=== PATIENT | male | born 1975 | race Hispanic/Latino ===

== ENCOUNTER 2018-02-21 12:42 | Emergency (ER) | payer BC ==
[2018-02-21 13:18] LABS: APPEARANCE,URINE Clear (CLEAR); BILIRUBIN,URINE Negative (NEGATIVE); COLOR,URINE Yellow (YELLOW); GLUCOSE, URINE (UA) Negative (NEGATIVE); KETONES,URINE Negative (NEGATIVE); LEUKOCYTE ESTERASE ,URINE Negative (NEGATIVE); NITRATE,URINE Negative (NEGATIVE); OCCULT BLOOD,URINE Negative (NEGATIVE); PH,URINE 5.5 (5.0-8.0); PROTEIN,URINE Negative (NEGATIVE); UROBILINOGEN,URINE 0.2 mg/dL (0.2-1.0)
[2018-02-21] MEDS ORDERED: SODIUM CHLORIDE 0.9% 1000ML 1,000 ML IV ONE (13:19)
[2018-02-21] MEDS ORDERED: ONDANSETRON HCL MDV 20ML 2 MG/ML VIAL ONE (13:19)
[2018-02-21] MEDS ORDERED: MORPHINE SULFATE 4 MG/1ML SYG ONE (13:19)
[2018-02-21] MEDS ORDERED: KETOROLAC TROMETHAMINE 30MG/ML ONE (13:19)
[2018-02-21 14:07] LABS: BASOPHILS % (AUTO) 0.5 % (0.0-5.0); HEMATOCRIT 41.6 % (42-54); LYMPHOCYTES % (AUTO) 9.9 % (21.0-51.0); MEAN CORPUSCULAR HEMOGLOBIN 31.2 pg (27.0-33.0); MEAN CORPUSCULAR HGB CONC 34.4 g/dL (32.0-36.0); MEAN CORPUSCULAR VOLUME 90.5 fL (79-99); MONOCYTES % (AUTO) 4.5 % (3.0-13.0); NEUTROPHILS % (AUTO) 85.1 % (40.0-77.0); PLATELET COUNT (AUTO) 382 K/uL (130-400); RED CELL DISTRIBUTION WIDTH 14.2 % (11.0-15.5); WHITE BLOOD COUNT (AUTO) 14.7 K/uL (4.8-10.8)
[2018-02-21 14:17] LABS: CREATININE 1.3 mg/dL (0.5-1.5); POTASSIUM 4.7 mmol/L (3.5-5.1)
[2018-02-21 14:21] LABS: ALBUMIN 3.9 g/dL (3.5-5.0); BILIRUBIN,TOTAL 0.6 mg/dL (0.2-1.0); TOTAL PROTEIN, SERUM 8.5 g/dL (6.0-8.3)
[2018-02-21] MEDS ORDERED: TAMSULOSIN HCL 0.4 MG CAP.ER.24H ONE (15:13)
== END 2018-02-21 15:36 | disposition home or self-care (01) ==
LOC: EDH 12:42
DX: N20.0 Calculus of kidney (principal); I10 Essential (primary) hypertension
CPT/HCPCS: 36415; 74176; 80053; 81003; 83690; 85025; 96361; 96374; 96375; 99285; J1885; J2270; J7030

== ENCOUNTER → 2018-05-01 | Outpatient (CLI) | payer BC | END | disposition home or self-care (01) | LOC: RAH 10:57 | PROVIDERS: ATTEND Urology | DX: K43.9 Ventral hernia without obstruction or gangrene (principal); R16.0 Hepatomegaly, not elsewhere classified; K76.0 Fatty (change of) liver, not elsewhere classified; N20.2 Calculus of kidney with calculus of ureter | CPT/HCPCS: 74176 ==

== ENCOUNTER 2025-01-04 10:59 | Emergency (ER) | payer OTHER ==
[~2025-01-04] VITALS: Ht 177.8 cm; Wt 140.6 kg
--- NOTE | 2025-01-04 11:08 | ERN ---
ED Note History of Present Illness Stated Complaint: ABDOMINAL PAIN Time Seen by MD: 11:02 Time Seen by Midlevel: 11:06 Dictation: PATIENT IS A 49-YEAR-OLD DIABETIC MALE COMING IN TODAY WITH COMPLAINTS OF DIFFUSE ABDOMINAL PAIN HOWEVER MORE FOCUSED TO THE MID GASTRIC AREA PROXIMAL HERNIA. HE HAS ALSO HAD DIARRHEA SINCE LAST FRIDAY. NO NAUSEA NO VOMITING NO FEVER NO CHILLS. HE IS ON MED JAR 0 PATIENT HAS BEEN INSTRUCTED TO LOSE WEIGHT SECONDARY TO HAVING HERNIA REPAIR. Allergies: Coded Allergies: No Known Drug Allergies (Unverified Allergy, Unknown, 01/04/25) Past Medical History RN Note Reviewed/Agreed w/PFSH: Yes Review of System Dictation CONSTITUTIONAL: NEGATIVE EXCEPT FOR HPI HEAD/FACE: NEGATIVE EXCEPT FOR HPI EENT: NEGATIVE EXCEPT FOR HPI RESPIRATORY: NEGATIVE EXCEPT FOR HPI GASTROINTESTINAL/ABDOMINAL: NEGATIVE EXCEPT FOR HPI MID GASTRIC PAIN WITH DIARRHEA FOR SEVERAL DAYS. GENITOURINARY: NEGATIVE EXCEPT FOR HPI MUSCULOSKELETAL: NEGATIVE EXCEPT FOR HPI INTEGUMENTARY: NEGATIVE EXCEPT FOR HPI NEUROLOGICAL/PSYCH: NEGATIVE EXCEPT FOR HPI HEMATOLOGIC/LYMPHATIC: NEGATIVE EXCEPT FOR HPI ALL SYSTEMS NEGATIVE, EXCEPT NOTED ABOVE. 13 POINT REVIEW OF SYSTEMS ASSESSED AND ALL NEGATIVE EXCEPT FOR ABOVE. Initial Vital Sign VS Vital Signs Date Time Temp Pulse Resp B/P (MAP) Pulse Ox O2 Delivery O2 Flow Rate FiO2 01/04/25 11:07 97.0 78 20 166/91 99 Room Air 0 01/04/25 13:01 21 Physical Exam Dictation VITAL SIGNS REVIEWED GENERAL APPEARANCE: ALERT, ORIENTED X 3, MODERATE ACUTE DISTRESS, WELL DEVELOPED, NOURISHED. OBESE HEAD AND FACE: NON-TRAUMATIC. EYES: PERRL, PINK CONJUNCTIVAS, EYELID NO TRAUMA, ANTERIOR CHAMBER WITH ARCUS SENILIS. EARS: PINNAS INTACT AND NO SIGNS OF TRAUMA OR ERYTHEMA EAR CANALS CLEAR AND NO DISCHARGE TM NO ERYTHEMA NOSE: NO DISCHARGE, NO BLEEDING. OROPHARYNX: MOUTH NORMAL, TONGUE PINK, PHARYNX CLEAR,NO ERYTHEMA, TONSILS NO EXUDATES, NO ABSCESSES NOTED, MUCOUS MEMBRANE MOIST NECK: SUPPLE, NON-TENDER, NO THYROMEGALY, NO MASSES, NO JVD, NO BRUITS BREAST:DEFERRED CHEST:NO TENDERNESS, NO CREPITUS, NO PARADOXICAL MOVEMENT, NO RETRACTIONS LUNGS:CLEAR, WELL-VENTILATED, SYMMETRIC, NO RALES, NO WHEEZING, NO RHONCHI, NO STRIDOR, GOOD BREATH SOUNDS BILATERALLY HEART: REGULAR RATE, REGULAR RHYTHM, NO MURMUR, NO GALLOPS VASCULAR: NO PERIPHERAL EDEMA, ABDOMEN: SOFT, POSITIVE BOWEL SOUNDS, NONDISTENDED, NO GUARDING, DIFFUSE MID GASTRIC AND PERIUMBILICAL PAIN. MULTIPLE HERNIAS NOTED. RECTAL: DEFERRED GENITAL: DEFERRED NEUROLOGICAL: NORMAL SPEECH, MOTOR FUNCTION INTACT, SENSORY FUNCTION INTACT MUSCULOSKELETAL: NECK NONTENDER, FULL RANGE OF MOTION, BACK NONTENDER, FULL RANGE OF MOTION, EXTREMITIES: NONTENDER, FULL RANGE OF MOTION SKIN: COLOR PINK, DRY, NO TURGOR, NO RASH, NO LACERATIONS, NO ABRASIONS, NO CONTUSIONS. LYMPHATIC: DEFERRED Results (Laboratory/Radiology) Laboratory/Radiology Laboratory Tests Test 01/04/25 11:25 01/04/25 11:33 01/04/25 12:47 White Blood Count 16.1 K/uL (4.8-10.8) H Red Blood Count 4.79 MIL/uL (4.50-6.20) Hemoglobin 15.1 g/dL (14.0-18.0) Hematocrit 42.8 % (42-54) Mean Corpuscular Volume 89.4 fL (79-99) Mean Corpuscular Hemoglobin 31.5 pg (27.0-33.0) Mean Corpuscular Hemoglobin Concent 35.3 g/dL (32.0-36.0) Red Cell Distribution Width 13.2 % (11.0-15.5) Platelet Count 329 K/uL (130-400) Mean Platelet Volume 8.9 fL (7.5-10.5) Immature Granulocyte % (Auto) 0.4 % (0-1) Neutrophils (%) (Auto) 67.7 % (40.0-77.0) Lymphocytes (%) (Auto) 18.9 % (21.0-51.0) L Monocytes (%) (Auto) 6.7 % (3.0-13.0) Eosinophils (%) (Auto) 6.1 % (0.0-8.0) Basophils (%) (Auto) 0.2 % (0.0-5.0) Neutrophils # (Auto) 10.9 K/uL (1.8-7.7) H Lymphocytes # (Auto) 3.0 K/uL (1.0-4.8) Monocytes # (Auto) 1.1 K/uL (0.1-1.0) H Eosinophils # (Auto) 0.98 K/uL (0.00-0.70) H Basophils # (Auto) 0.04 K/uL (0.00-0.20) Absolute Immature Granulocyte (auto 0.06 K/uL (0-1) Nucleated Red Blood Cells 0.0 % (0.0-0.19) Sodium Level 137 mmol/L (136-145) Potassium Level 3.3 mmol/L (3.5-5.1) L Chloride Level 101 mmol/L (101-111) Carbon Dioxide Level 23 mmol/L (21-32) Blood Urea Nitrogen 7 mg/dL (7-18) Creatinine 1.2 mg/dL (0.5-1.3) Glomerular Filtration Rate Calc 75 mL/min (>90) Random Glucose 199 mg/dL (70-105) H Total Calcium 8.9 mg/dL (8.5-10.1) Lipase 130 U/L (16-77) H Urine Color LIGHT-YELLOW (YELLOW) Urine Appearance CLEAR (CLEAR) Urine pH 5.0 (5.0-8.0) Urine Specific Liberal 1.015 (1.001-1.031) Urine Protein 10 mg/dL (NEGATIVE) H Urine Glucose (UA) NEGATIVE mg/dL (NEGATIVE) Urine Ketones 5 mg/dL (NEGATIVE) H Urine Occult Blood NEGATIVE (NEGATIVE) Urine Nitrate NEGATIVE (NEGATIVE) Urine Bilirubin NEGATIVE mg/dL (NEGATIVE) Urine Urobilinogen 0.2 mg/dL (0.2-1.0) Urine Leukocyte Esterase NEGATIVE Marie/uL Urine RBC 0-1 /HPF (0-1) Urine WBC 0-1 /HPF (0-1) Urine Bacteria None Seen /HPF (None Seen) Lactic Acid Level 2.2 mmol/L (0.8-2.5) CT ABDOMEN/PELVIS W/CONTRAST HISTORY: Periumbilical pain COMPARISON: 05/01/2018 TECHNIQUE: Multiple sequential axial images of the abdomen and pelvis were obtained from the dome of the diaphragm through symphysis pubis. Patient was given 100 cc of Omnipaque through intravenous route. Oral contrast was not given. FINDINGS: No pleural effusion is seen bilaterally. There is no evidence of parenchymal disease or pulmonary nodule of the visualized lower lungs. Degenerative changes of the thoracolumbar spine are present. The heart is not enlarged. Liver is enlarged with fatty changes measuring 18 cm. Gastric distention is seen. There is large periumbilical hernia with fat content with fat stranding suggestive of incarcerated hernia. No bowel obstruction is seen at this time. The liver, spleen, adrenal glands and pancreas are unremarkable. There is no evidence of hydronephrosis bilaterally. No evidence of renal stone is seen. Fecal material is seen in the colon. There are normal size retroperitoneal and mesenteric lymph nodes. No ascites is seen. Atherosclerotic changes are present. Pelvic sidewalls are symmetric bilaterally. Bladder is poorly distended. IMPRESSION: 1. There is large periumbilical hernia with fat content with fat stranding suggestive of incarcerated hernia. No bowel obstruction is seen at this time. Labs Reviewed?: Yes ED Course ED Course Orders Procedure Category Date Status Time Cbc With Differential LAB 01/04/25 Complete 11:05 Urinalysis Profile LAB 01/04/25 Complete 11:05 Ct Abdomen/Pelvis CT 01/04/25 Resulted W/Contrast 11:05 0.9%Nacl 1000ml (Ns PHA 01/04/25 Complete 1000ml) 11:30 Morphine 4mg Syg PHA 01/04/25 Complete (Morphine 4mg Syg) 11:30 Ondansetron 4mg Inj PHA 01/04/25 Complete (Zofran 4mg Inj) 11:30 Lipase LAB 01/04/25 Complete 11:05 Basic Metabolic Panel LAB 01/04/25 Complete 11:05 Blood Cult ARPIT 01/04/25 In Process 11:42 Lactic Acid LAB 01/04/25 Complete 11:42 Zosyn 3.375gm+Ns 50ml PHA 01/04/25 Complete (Zosyn 3.375gm+Ns 12:00 Iohexol (Omnipaque) PHA 01/04/25 Complete 12:33 Pt And Ptt LAB 01/04/25 In Process 12:37 Current Medications Medications (Trade) Dose Ordered Sig/Bettye Route PRN Reason Start Time Stop Time Status Last Admin Dose Admin Iohexol (Omnipaque) 35,000 mg STK-MED ONCE IV 01/04/25 12:33 01/04/25 12:36 DC Morphine Sulfate (morPHINE 4MG SYG) 4 mg ONCE ONCE IVP 01/04/25 11:30 01/04/25 11:31 DC 01/04/25 11:25 Ondansetron HCl (zoFRAN 4MG INJ) 4 mg ONCE ONCE IVP 01/04/25 11:30 01/04/25 11:31 DC 01/04/25 11:25 Piperacillin Sod/ Tazobactam Sod (Zosyn 3.375gm+NS 50ml) 3.375 gm ONCE ONCE IVPB 01/04/25 12:00 01/04/25 12:01 DC Sodium Chloride 1,000 ml @ 0 mls/hr ONCE ONCE IV 01/04/25 11:30 01/04/25 11:31 DC 01/04/25 11:25 Vital Signs Date Time Temp Pulse Resp B/P (MAP) Pulse Ox O2 Delivery O2 Flow Rate FiO2 01/04/25 13:01 97.0 78 20 166/91 99 Room Air* 0 21 01/04/25 11:07 97.0 78 20 166/91 99 Room Air 0 1315/DR KALEN ZHAO REGARDING HERNIA . HE SAID SINCE HERNIA REPAIRED AND PATIENT IS OUT OF PAIN. SAID THE DISCHARGE PATIENT HOME TO FOLLOW UP WITH HIM IN HIS OFFICE ON FRIDAY AT 15:00 HOURS. HE SAID TO HAVE PATIENT CALL HIS OFFICE FOR A WALK-IN APPOINTMENT AT 15:00. SAID TILL PATIENT TO WEAR A BINDER AT ALL TIMES. Medical Decision Making MDM MDM: DIFFERENTIAL DIAGNOSIS: UNCONTROLLED DIABETES/APPENDICITIS/DIVERTICULITIS/PANCREATITIS/DKA/ELECTROLYTE IMBALANCE/DEHYDRATION/UTI/HERNIA RATIONALE: TESTS CONSIDERED AND ORDERED SECONDARY TO SHARED DECISION MAKING INCLUDE: LABS/RADIOLOGY PREVIOUS OUTSIDE RECORDS REVIEWED: OLD ER VISITS. RISK OF COMPLICATION AND/OR MORBIDITY OR MORTALITY OF PATIENT MANAGEMENT: NONE MEDICATIONS-PER MEDICATION RECONCILIATION NEED FOR HOSPITALIZATION: PATIENT DOES NOT MEET CRITERIA FOR HOSPITALIZATION. NO SPOKE WITH SURGEON AND HE SAID TO HAVE PATIENT FOLLOW UP IN HIS OFFICE ON FRIDAY, TO WEAR A BINDER NEED FOR EMERGENCY MAJOR/MINOR SURGERY: NO THERE ARE NO SOCIAL CONCERNS WITH THIS PATIENT. PRESCRIPTION DRUG MANAGEMENT IBUPROFEN PRESCRIPTIONS WILL INCLUDE SYMPTOMATIC CARE PATIENT'S PRIOR EXTERNAL MEDICAL RECORDS FROM OTHER ER VISITS WERE REVIEWED BY ME INDICATED. PRIOR TESTING AND RESULTS FROM PREVIOUS VISITS WERE REVIEWED. PRIOR TESTS WERE TAKEN INTO ACCOUNT WITH MEDICAL DECISION MAKING AND RESOURCE UTILIZATION, INDEPENDENT HISTORIAN/HISTORIANS WERE USED TO OBTAIN COMPLETE MEDICAL HISTORY. I INDEPENDENTLY INTERPRETED THE TEST THAT WERE PERFORMED, RESULTS WERE REVIEWED BY ME AND CONSIDERED FINDINGS ON RADIOLOGY IF ORDERED. MEDICAL MANAGEMENT AND EXAMINATION INTERPRETATION DISCUSSIONS WERE HAD BY ME WITH OTHER QUALIFIED HEALTHCARE PROFESSIONALS INDICATED FOR THE PATIENT'S CARE. Procedure Procedure Dictation: 1315/PATIENT HAD PROCEDURE EXPLAINED AND HE AGREED TO PROCEED PATIENT IS BED PLACED IN REVERSE [place] UMBILICAL HERNIA WAS MANUALLY REDUCED BY FUR CUTTING MACHINE OPERATOR NO REDUCIBLE MASS AFTER REDUCTION PATIENT STATES NO PAIN AT THIS TIME. DX & DISP Disposition: Discharge Departure Impression: Primary Impression: Incarcerated umbilical hernia Additional Impressions: Uncontrolled diabetes mellitus, Dehydration, Elevated lipase, Hypokalemia, Obesity Condition: Stable Scripts Ibuprofen (Ibuprofen 800 mg Tab) 800 Mg Tab 800 MG PO Q6H PRN for PAIN, #60 TAB Prov: SHANON GRAF NP 01/04/25 Additional Instructions: FOLLOW-UP WITH PRIMARY CARE PROVIDER IN 1 TO 2 DAYS. TAKE MEDICATIONS DIRECTED HERE IN THE EMERGENCY ROOM. OKAY TO CONTINUE HOME MEDICATIONS UNLESS OTHERWISE DISCUSSED DURING YOUR VISIT IN THE EMERGENCY ROOM TODAY. RETURN TO YOUR NEAREST EMERGENCY ROOM IF SYMPTOMS WORSEN OR IF THERE IS NO IMPROVEMENT. CALL 911 IF YOU NEED IMMEDIATE ASSISTANCE. TAKE TYLENOL OR MOTRIN [id number] NEEDED AND IF NO CONTRAINDICATIONS ARE PRESENT. INCREASE ORAL HYDRATION. A WOUND CULTURE OR URINE CULTURE WAS ORDERED HERE IN THE [facility] ROOM DEPARTMENT PLEASE FOLLOW-UP WITH PRIMARY CARE PROVIDER AND ADVISE THEM TO GET REPEAT PORTS FROM OUR FACILITY. IF YOU HAD ANY ANGELICA WRAP/SPLINTS THAT WERE APPLIED HERE, PLEASE DO NOT REMOVE THEM UNTIL YOU SEE YOUR PRIMARY CARE OR SPECIALTY. WEAR AN ABDOMINAL BINDER/[id number] AT ALL TIMES UNTIL CLEARED BY THE SURGEON. CALL HIS OFFICE TOMORROW FOR AN APPOINTMENT ON 01/06/2025 AT 03:00 O'CLOCK IN THE AFTERNOON. NO LIFTING GREATER THAN 10 LB UNTIL CLEARED BY YOUR DOCTOR. Referrals: MÓNICA MUKHERJEE MD (PCP) PRINCE SEE MD Time of Disposition: 13:34 I have reviewed the case, and I agree with, Diagnosis and Plan SHANON GRAF NP Jan 04, 2025 11:08
[2025-01-04] MEDS: ondanSETRON 4MG INJ IVP ONE (11:25)
[2025-01-04] MEDS: morPHINE 4 MG SYG IVP ONE (11:25)
[2025-01-04] MEDS: 0.9%NACL 1000ML 1,000 ML IV ONE (11:25)
[2025-01-04 11:32] LABS: BASOPHILS # (AUTO) 0.04 K/uL (0.00-0.20); BASOPHILS % (AUTO) 0.2 % (0.0-5.0); EOSINOPHILS # (AUTO) 0.98 K/uL (0.00-0.70); EOSINOPHILS % (AUTO) 6.1 % (0.0-8.0); HEMATOCRIT 42.8 % (42-54); IMMATURE GRANULOCYTE ABSOLUTE 0.06 K/uL (0-1); LYMPHOCYTES % (AUTO) 18.9 % (21.0-51.0); MEAN CORPUSCULAR HEMOGLOBIN 31.5 pg (27.0-33.0); MEAN CORPUSCULAR HGB CONC 35.3 g/dL (32.0-36.0); MEAN CORPUSCULAR VOLUME 89.4 fL (79-99); MONOCYTES # (AUTO) 1.1 K/uL (0.1-1.0); MONOCYTES % (AUTO) 6.7 % (3.0-13.0); NEUTROPHILS # (AUTO) 10.9 K/uL (1.8-7.7); NEUTROPHILS % (AUTO) 67.7 % (40.0-77.0); PLATELET COUNT (AUTO) 329 K/uL (130-400); RED BLOOD CELL COUNT(AUTO) 4.79 MIL/uL (4.50-6.20); RED CELL DISTRIBUTION WIDTH 13.2 % (11.0-15.5); WHITE BLOOD COUNT (AUTO) 16.1 K/uL (4.8-10.8)
[2025-01-04 11:47] LABS: CREATININE 1.2 mg/dL (0.5-1.3); POTASSIUM 3.3 mmol/L (3.5-5.1)
[2025-01-04 11:53] LABS: APPEARANCE,URINE CLEAR (CLEAR); BILIRUBIN,URINE NEGATIVE (NEGATIVE); COLOR,URINE LIGHT-YELLOW (YELLOW); GLUCOSE, URINE (UA) NEGATIVE (NEGATIVE); KETONES,URINE 5 mg/dL (NEGATIVE); LEUKOCYTE ESTERASE ,URINE NEGATIVE Leu/uL (NEGATIVE); NITRATE,URINE NEGATIVE (NEGATIVE); OCCULT BLOOD,URINE NEGATIVE (NEGATIVE); PROTEIN,URINE 10 mg/dL (NEGATIVE); UROBILINOGEN,URINE 0.2 mg/dL (0.2-1.0)
[2025-01-04 11:56] LABS: ADD UA MICROSCOPIC YES
[2025-01-04 12:03] LABS: BACTERIA,URINE None Seen /HPF (None Seen); RBC,URINE 0-1 /HPF (0-1); WBC,URINE 0-1 /HPF (0-1)
[2025-01-04] MEDS ORDERED: IOHEXOL 350 MG/ML 100ML INFUS..BTL IV ONE (12:33)
[2025-01-04 13:01] VITALS: BP 166/91; PULSE 78; RESP 20; TEMP 97; O2SAT 99
--- NOTE | 2025-01-04 13:06 | HMCIMG ---
CT ABDOMEN/PELVIS W/CONTRAST HISTORY: Periumbilical pain COMPARISON: 05/01/2018 TECHNIQUE: Multiple sequential axial images of the abdomen and pelvis were obtained from the dome of the diaphragm through symphysis pubis. Patient was given 100 cc of Omnipaque through intravenous route. Oral contrast was not given. FINDINGS: No pleural effusion is seen bilaterally. There is no evidence of parenchymal disease or pulmonary nodule of the visualized lower lungs. Degenerative changes of the thoracolumbar spine are present. The heart is not enlarged. Liver is enlarged with fatty changes measuring 18 cm. Gastric distention is seen. There is large periumbilical hernia with fat content with fat stranding suggestive of incarcerated hernia. No bowel obstruction is seen at this time. The liver, spleen, adrenal glands and pancreas are unremarkable. There is no evidence of hydronephrosis bilaterally. No evidence of renal stone is seen. Fecal material is seen in the colon. There are normal size retroperitoneal and mesenteric lymph nodes. No ascites is seen. Atherosclerotic changes are present. Pelvic sidewalls are symmetric bilaterally. Bladder is poorly distended. IMPRESSION: 1. There is large periumbilical hernia with fat content with fat stranding suggestive of incarcerated hernia. No bowel obstruction is seen at this time. CT was performed with one or more following dose reduction techniques: automated exposure control, adjustment of the mA and kv according to patient's size, or use of a iterative reconstruction technique.
[2025-01-04] MEDS ORDERED: IBUP-2077 PO (13:35)
[2025-01-04] MEDS: ZOSYN 3.375GM +NS 50ML IVPB ONE (13:38)
[2025-01-04] MEDS: PoTASSium BIcarbonate/CIT AC 25 MEQ TABLET.EFF PO ONE (13:45)
[2025-01-04 13:49] LABS: INR 1.07 (0.85-1.15); PROTHROMBIN TIME 11.9 SEC (9.6-11.6)
== END 2025-01-04 14:14 | disposition home or self-care (01) ==
LOC: EDH 10:59
DX: K42.0 Umbilical hernia with obstruction, without gangrene (principal); E11.65 Type 2 diabetes mellitus with hyperglycemia; E86.0 Dehydration; E87.6 Hypokalemia; E66.9 Obesity, unspecified; R74.8 Abnormal levels of other serum enzymes
CPT/HCPCS: 99285; 74177; 96365; 96375; 96366; 80048; 83690; 85025; 85610; 85730; 87040 ×2; 83605; 81001; 36415; J7030; J2405; J2270; J2543; Q9967